=== PATIENT | male | born 1940 | race Caucasian/White ===

== ENCOUNTER 2016-07-04 21:00 | Emergency (ER) | payer MEDICARE ==
[2016-07-04 21:53] LABS: BASOPHIL 0.4 % (0-2); EOSINOPHIL 4.9 % (0-7); HCT 37.5 % (42.0-52.0); HGB 12.2 g/dl (13.2-18.0); LYMPHOCYTE 10.9 % (15-48); MCH 27.4 pg (25.0-31.0); MCHC 32.5 g/dL (32.0-36.0); MCV 84.1 fL (78.0-100.0); MPV 9.3 fL (6.0-9.5); NEUTROPHIL 71.8 % (41-80); PLT 305 K/uL (150-400); RBC 4.46 M/uL (4.70-6.00)
[2016-07-04 22:05] LABS: ALBUMIN 3.9 g/dL (3.4-4.8); BILIRUBIN - TOTAL 0.2 mg/dL (0.1-1.0); CREATININE 1.1 mg/dL (0.7-1.2); GLOBULIN (CALCULATION) 2.6 g/dL (2.2-4.2); POTASSIUM 4.1 mmol/L (3.5-5.1); TOTAL PROTEIN 6.5 g/dL (6.4-8.3)
== END 2016-07-04 22:43 | disposition home or self-care (01) ==
LOC: FER 21:00
PROVIDERS: Emergency Medicine
DX: E16.2 Hypoglycemia, unspecified (principal); I10 Essential (primary) hypertension; K21.9 Gastro-esophageal reflux disease without esophagitis
CPT/HCPCS: 36415; 80053; 85025

== ENCOUNTER → 2020-06-29 | Day surgery (SDC) | payer MEDICARE ==
[~2020-06-29] MED LIST: COREG12.5 MG PO; DOXAZOSIN MESYLA8 M1 PO; FAMOTIDINE20 MG PO; IRBESARTAN300 MG PO; NORVASC5 MG PO; OMEPRAZOLE40 MG PO; SUCRALFATE1 GM PO
[2020-06-29 08:25] LABS: HCT 33.4 % (42.0-52.0); HGB 10.5 g/dl (13.2-18.0); MCH 25.7 pg (25.0-31.0); MCHC 31.4 g/dL (32.0-36.0); MCV 81.9 fL (78.0-100.0); MPV 9.5 fL (6.0-9.5); RBC 4.08 M/uL (4.70-6.00); RDW 14.9 % (11.5-14.0); WBC 5.5 K/uL (4.0-10.5)
[2020-06-29 08:44] LABS: ALBUMIN 3.2 g/dL (3.4-5.0); BILIRUBIN - TOTAL 0.4 mg/dL (0.2-1.0); BUN/CREAT RATIO (CALC) 17.3 RATIO; CREATININE 1.27 mg/dL (0.67-1.17); GLOBULIN (CALCULATION) 3.6 g/dL; POTASSIUM 3.9 mmol/L (3.5-5.1); TOTAL PROTEIN 6.8 g/dL (6.4-8.2)
== END | disposition home or self-care (01) ==
LOC: FAS 07:49
PROVIDERS: Surgery
DX: K63.5 Polyp of colon (principal); K29.70 Gastritis, unspecified, without bleeding; K44.9 Diaphragmatic hernia without obstruction or gangrene; D50.0 Iron deficiency anemia secondary to blood loss (chronic); R11.15 Cyclical vomiting syndrome unrelated to migraine; J30.9 Allergic rhinitis, unspecified; I10 Essential (primary) hypertension; Z82.49 Family history of ischemic heart disease and other diseases of the circulatory system; Z82.61 Family history of arthritis; Z87.891 Personal history of nicotine dependence; Z79.899 Other long term (current) drug therapy
CPT/HCPCS: 36415; 80053; 88305; J1610; J2250; J7120

== ENCOUNTER 2021-12-20 18:39 | Emergency (ER) | payer MEDICARE ==
[2021-12-20 21:04] LABS: INFLUENZA A NAA NEGATIVE (NEGATIVE)
[2021-12-20 21:06] LABS: CORONAVIRUS 2019 SARS-COV-2 POSITIVE (NEGATIVE)
== END 2021-12-20 20:20 | disposition home or self-care (01) ==
LOC: FER 18:39
PROVIDERS: Emergency Medicine
DX: U07.1 COVID-19 (principal)
CPT/HCPCS: 99283; U0002